=== PATIENT | female | born 1985 ===

== ENCOUNTER 2021-05-31 18:22 | Emergency (ER) | payer SELFPAY ==
[~2021-05-31] VITALS: Ht 154.9 cm; Wt 68.0 kg
[2021-05-31 18:48] VITALS: BP 135/70
== END 2021-05-31 18:52 | disposition left against medical advice (07) | DRG 951 ==
LOC: ED 18:22 → LWOBS 18:50
PROVIDERS: Family Medicine
DX: Z53.21 Procedure and treatment not carried out due to patient leaving prior to being seen by health care provider (principal)